=== PATIENT | male | born 1950 | race Caucasian/White ===

== ENCOUNTER 2017-01-20 10:11 | Observation (INO) | payer MEDICARE ==
[~2017-01-20 10:11] MED LIST: NORCO 7.5-3251 EACH PO
[2017-01-20 19:10] LABS: HEMOGLOBIN 10.3 gm/dl (14.0-17.5); RED BLOOD COUNT 3.51 M/UL (4.20-5.50); WHITE BLOOD COUNT 6.5 K/UL (4.5-11.0)
[2017-01-20] MEDS ORDERED: LEVEMIR100 UNIT/1 SQ (19:30)
[2017-01-20] MEDS ORDERED: NOVOLOG FL100 UNIT/1 SQ (19:31)
[2017-01-20] MEDS ORDERED: PROTONIX40 MG PO (19:32)
[2017-01-20] MEDS ORDERED: LISINOPRIL10 MG PO (19:32)
[2017-01-20] MEDS ORDERED: BUMETANIDE1 MG PO (19:32)
[2017-01-20] MEDS ORDERED: NORVASC 5 MG TAB5 MG PO (19:33)
[2017-01-20] MEDS ORDERED: ALDACTONE 25MG25 MG PO (19:33)
[2017-01-20] MEDS ORDERED: ASPIRIN CHEWABL81 MG PO (19:34)
[2017-01-20] MEDS ORDERED: COREG 12.5MG12.5 MG PO (19:36)
[2017-01-21 12:31] LABS: RED BLOOD COUNT 3.45 M/UL (4.20-5.50); WHITE BLOOD COUNT 5.9 K/UL (4.5-11.0)
[2017-01-22 04:24] LABS: RED BLOOD COUNT 3.45 M/UL (4.20-5.50); WHITE BLOOD COUNT 6.9 K/UL (4.5-11.0)
[2017-01-22] MEDS ORDERED: PLAVIX 75 MG TA75 MG PO (10:28)
[2017-01-23] MEDS ORDERED: PROTONIX40 MG PO (12:09)
[2017-01-23] MEDS ORDERED: NITROSTAT 0.40.4 MG SL (12:11)
== END 2017-01-23 13:00 ==
LOC: MED SURG 4 17:49 → PROG CARE 17:49
PROVIDERS: Internal Medicine Cardiovascular Disease; Nurse Practitioner; ADMIT Internal Medicine Cardiovascular Disease
DX: I73.9 Peripheral vascular disease, unspecified (principal); I35.0 Nonrheumatic aortic (valve) stenosis; I65.21 Occlusion and stenosis of right carotid artery; I25.10 Atherosclerotic heart disease of native coronary artery without angina pectoris; I11.0 Hypertensive heart disease with heart failure; I50.22 Chronic systolic (congestive) heart failure; R60.0 Localized edema; Z86.718 Personal history of other venous thrombosis and embolism; E78.5 Hyperlipidemia, unspecified; E11.22 Type 2 diabetes mellitus with diabetic chronic kidney disease; I25.5 Ischemic cardiomyopathy; I25.2 Old myocardial infarction; I70.1 Atherosclerosis of renal artery; N18.3 Chronic kidney disease, stage 3 (moderate); M10.9 Gout, unspecified; K21.9 Gastro-esophageal reflux disease without esophagitis; D63.1 Anemia in chronic kidney disease; Z98.61 Coronary angioplasty status; Z95.810 Presence of automatic (implantable) cardiac defibrillator; Z86.73 Personal history of transient ischemic attack (TIA), and cerebral infarction without residual deficits; Z87.19 Personal history of other diseases of the digestive system; Z87.891 Personal history of nicotine dependence; Z79.82 Long term (current) use of aspirin; Z79.4 Long term (current) use of insulin; Z79.891 Long term (current) use of opiate analgesic; Z79.02 Long term (current) use of antithrombotics/antiplatelets; Z79.899 Other long term (current) drug therapy; Z82.49 Family history of ischemic heart disease and other diseases of the circulatory system; Z83.3 Family history of diabetes mellitus
CPT/HCPCS: ECHO; 71010; 75630; 80048; 82962; 85025; 85027; 85347; 85610; 85730; 93005; 93306; 93970; 96365; 96366; 96375; 96376; C1714; C1725; C1769; C1887; C2623; G0378; G0379; J1644; J1817; J2250; J2270; J3010; J7030; J7050; Q9965